=== PATIENT | male | born 1960 | race Caucasian/White ===

== ENCOUNTER 2017-08-16 12:56 | Emergency (ER) | payer OTHER ==
[~2017-08-16] VITALS: Ht 180.3 cm; Wt 115.0 kg
[~2017-08-16 12:56] MED LIST: ALLOPURINOL300 MG PO; AMLODIPINE BESY10 MG PO; AMLODIPINE BESYL5 MG PO; ATIVAN1 MG PO; FLONASE16 G1 BOTH NARES; GABAPENTIN100 MG PO; GLIPIZIDE10 MG PO; GLUCOTROL10 MG PO; LANTUS 10100 UNITS/ SC; LANTUS 3 M100 UNITS1 SC; LISINOPRIL40 MG PO; LISINOPRIL5 MG PO; LODINE300 MG PO; METFORMIN HCL1000 MG PO; METHOCARBAMOL750 MG PO; MINIPRESS5 MG PO; MUSCLE RELAXER PO; NEURONTIN300 MG PO; NICOTINE PATCH1 EAC1 TD; NOVOLOG 10100 UNITS/ SC; OMEPRAZOLE20 MG PO; PEPCID40 MG PO; PRAVACHOL10 MG PO; PRAVASTATIN SOD80 MG PO; PRAZOSIN HCL1 MG PO; PRAZOSIN HCL2 MG PO; PRILOSEC10 MG PO; REGLAN10 MG PO; SERTRALINE HCL100 MG PO; SERTRALINE HCL25 MG PO; SF 5000 PLUS51 GM DT; TRAZODONE HCL100 MG PO; TRAZODONE HCL50 MG PO; VITAMIN D31000 UNIT PO; ZYLOPRIM100 MG PO
[2017-08-16] MEDS ORDERED: MOTRIN600 MG PO (17:08)
[2017-08-16 17:25] VITALS: BP 129/76
== END 2017-08-16 17:25 | disposition home or self-care (01) ==
LOC: EME 12:56
DX: S20.211A Contusion of right front wall of thorax, initial encounter (principal); S80.811A Abrasion, right lower leg, initial encounter; S80.11XA Contusion of right lower leg, initial encounter; V47.0XXA Car driver injured in collision with fixed or stationary object in nontraffic accident, initial encounter; Y92.410 Unspecified street and highway as the place of occurrence of the external cause; J44.9 Chronic obstructive pulmonary disease, unspecified; I10 Essential (primary) hypertension; E78.5 Hyperlipidemia, unspecified; E11.9 Type 2 diabetes mellitus without complications; F32.9 Major depressive disorder, single episode, unspecified; F41.9 Anxiety disorder, unspecified; Z87.442 Personal history of urinary calculi; Z87.891 Personal history of nicotine dependence; Z79.4 Long term (current) use of insulin; Z88.5 Allergy status to narcotic agent
CPT/HCPCS: 71101; 73590; 93005; 99281; 99284